=== PATIENT | male | born 1955 | race Caucasian/White ===

== ENCOUNTER 2017-06-27 12:49 | Observation (INO) | payer OTHER ==
[2017-06-27] MEDS ORDERED: BABY ASPIRIN 81 MG CHEW PO ONE (13:10)
[2017-06-27] MEDS ORDERED: Nitrostat 0.4 MG (ED) SL ONE ×2 (13:10→13:14)
[2017-06-27] MEDS ORDERED: BABY ASPIRIN 81 MG CHEW ONE (13:14)
[2017-06-27] MEDS ORDERED: Sodium Chloride 0.9% 1000 ML 1,000 ML IV SCH (13:15)
--- NOTE | 2017-06-27 13:30 | XRAY ---
Indication: Chest pain and dizziness. Comparison: None Portable chest demonstrates minimal right mid lung fibrosis/scarring and a few scattered calcified granulomas. Remaining heart and lungs normal. Bony thorax intact.
[2017-06-27 13:31] LABS: BASOPHIL % 0.3 % (0.0-0.4); Eosinophil % 1.1 % (0.00-5.0); Granulocytes % 69.1 % (36.0-66.0); Lymphocytes % 23.8 % (24.0-44.0); Mean Cell Volume 92.1 fl (78-100); Mean Corpuscular Hemoglobin 30.1 pg (26-32); Mean Platelet Volume 11.5 fl (6-9.5); Monocytes % 5.7 % (0.0-12.0); Platelet Count 134 K/mm3 (150-450); Red Blood Count 4.91 M/mm3 (4.1-5.6); White Blood Count 7.9 K/mm3 (4.0-10.5)
--- NOTE | 2017-06-27 13:39 | ERPHSYRPT ---
- History of Present Illness Time Seen by Provider: 06/27/17 13:00 Historian: patient Patient Subjective Stated Complaint: pt states he developed chest pain omn 06/24. states he has pressure and some dizziness. Triage Nursing Assessment: pt pink, warm, dry. lung sounds clear and equal. Physician History: PATIENT WITH A HISTORY OF HYPERTENSION AND HYPOTHYROIDISM COMPLAINS OF SUBSTERNAL CHEST HEAVINESS INTERMITTENTLY FOR 4-5 DAYS, DENIES ASSOCIATED DIAPHORESIS, PALPITATIONS OR DYSPNEA. PAIN SCALE INITIALLY 5/10 HAS COMPLETELY RESOLVED UPON ARRIVAL TO EMERGENCY ROOM. Timing/Duration: week(s) Activities at Onset: none Quality: pressure, other (HEAVINESS) Location: substernal Chest Pain Radiation: no radiation Severity of Pain-Max: moderate Severity of Pain-Current: none Modifying Factors: Improves With: nothing Associated Symptoms: denies symptoms Nitro Today/Relief: no nitro taken today Aspirin Treatment Today: 81 mg x 4, provided by ED Allergies/Adverse Reactions: Sulfa (Sulfonamide Antibiotics) Allergy (Severe, Verified 08/25/13 12:56) Hives Home Medications: Aspirin 81 gm Chew [Baby Aspirin 81 mg Chew] 81 mg PO DAILY 08/25/13 [ History] Lisinopril 20 mg [Zestril 20 MG] 40 mg PO DAILY 08/25/13 [History] Hydrocodone/APAP 10/325 mg [[place] 10/325 MG Tablet] 1 tab PO Q4HPRN PRN [History] Levothyroxine Sodium 150 Mcg [Synthroid 150 Mcg] 150 mcg PO DAILY 10/12/16 [History] Meloxicam 15 mg [Meloxicam 15 MG] 15 mg PO DAILY 10/12/16 [History] Gabapentin 300 mg PO HS 05/23/17 [History] Aspirin [Aspirin EC] 81 mg PO DAILY 06/27/17 [History] Pravastatin Sodium 40 mg PO DAILY 06/27/17 [History] Hx Tetanus, Diphtheria Vaccination/Date Given: No (unknown) Hx Influenza Vaccination/Date Given: No Hx Pneumococcal Vaccination/Date Given: No Immunizations Up to Date: Yes - Review of Systems Constitutional: No Fever, No Chills Eyes: No Symptoms Ears, Nose, & Throat: No Symptoms Respiratory: No Symptoms, No Cough, No Dyspnea Cardiac: Chest Pain, No Edema, No Syncope Abdominal/Gastrointestinal: No Symptoms, No Abdominal Pain, No Nausea, No Vomiting, No Diarrhea Genitourinary Symptoms: No Symptoms, No Dysuria Musculoskeletal: No Symptoms, No Back Pain, No Neck Pain Skin: No Rash Neurological: No Dizziness, No Focal Weakness, No Sensory Changes Psychological: No Symptoms Endocrine: No Symptoms Hematologic/Lymphatic: No Symptoms All Other Systems: Reviewed and Negative - Past Medical History Pertinent Past Medical History: Yes Neurological History: No Pertinent History ENT History: No Pertinent History Cardiac History: High Cholesterol, Hypertension Respiratory History: Pneumonia Endocrine Medical History: Hypothyroidism Musculoskeletal History: Other GI Medical History: GERD, Hemorrhoids History: No Pertinent History Psycho-Social History: Anxiety, Depression Male Reproductive Disorders: No Pertinent History Other Medical History: back pain, nervous,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,cramping - Past Surgical History Past Surgical History: Yes Neuro Surgical History: No Pertinent History Cardiac: No Pertinent History Respiratory: No Pertinent History Gastrointestinal: No Pertinent History Genitourinary: No Pertinent History Musculoskeletal: Other Male Surgical History: No Pertinent History Other Surgical History: 2 back surgeries,hip realease muscles, bronch drain lung dt pneumonia 2010,tonsils removed - Social History Smoking Status: Former smoker Exposure to second hand smoke: No Drug Use: none Patient Lives Alone: No - Nursing Vital Signs Nursing Vital Signs: Initial Vital Signs Temperature 98.7 F 06/27/17 12:50 Pulse Rate 74 06/27/17 12:50 Respiratory Rate 20 06/27/17 12:50 Blood Pressure 147/78 06/27/17 12:50 O2 Sat by Pulse Oximetry 98 06/27/17 12:50 Pain Scale Pain Intensity 5 - Physical Exam General Appearance: no apparent distress, alert Eye Exam: PERRL/EOMI, eyes nml inspection Ears, Nose, Throat Exam: normal ENT inspection, moist mucous membranes Neck Exam: normal inspection, non-tender, supple, full range of motion Respiratory Exam: normal breath sounds, lungs clear, No respiratory distress Cardiovascular Exam: regular rate/rhythm, normal heart sounds Gastrointestinal/Abdomen Exam: soft, normal bowel sounds (NONTENDER), No tenderness, No mass Back Exam: normal inspection, No CVA tenderness, No vertebral tenderness Extremity Exam: normal inspection, normal range of motion Neurologic Exam: alert, oriented x 3, cooperative, normal mood/affect, sensation nml, No motor deficits Skin Exam: normal color, warm, dry SpO2 Interpretation: normal SpO2: 98 Oxygen Delivery: Room Air - Course EKG Interpreted by Me: RATE, Sinus Rhythm, NORMAL AXIS, LAFB - Radiology Exams Chest X-ray Interpretation: Discussed w/ radiologist (MINIMAL RIGHT MID LUNG FIBROSIS/ SCARRING AND A FEW SCATTERED GRANULOMAS) Ordered Tests: Active Orders 24 hr Category Date Time Status Bedrest with BRP/BSC ROUTINE Activity 06/27/17 15:08 Ordered Admission/Status Order ROUTINE Care 06/27/17 15:08 Ordered Call Admit Doctor for Orders ROUTINE Care 06/27/17 15:07 Ordered Cnc Set Up Operator STAT Care 06/27/17 13:01 Active Code Status Order ROUTINE Care 06/27/17 15:08 Ordered EKG-ER Only STAT Care 06/27/17 13:00 Active IV Care Q6H Care 06/27/17 15:08 Ordered IV Insertion STAT Care 06/27/17 13:00 Active Implement Chest Pain Pathway ROUTINE Care 06/27/17 15:08 Ordered Oxygen-ED Only NASAL CANNULA 2 lpm Care 06/27/17 13:10 Active Martín Hose, Apply ROUTINE Care 06/27/17 15:08 Ordered Telemetry ROUTINE Care 06/27/17 15:08 Ordered Vital Signs Q4H Care 06/27/17 15:07 Ordered Weight,Daily 0600 Care 06/27/17 15:08 Ordered Cardiac Diet Diet 06/27/17 Dinner Ordered CHEST 1 VIEW (PORTABLE) Stat Exams 06/27/17 13:01 Completed CBC W DIFF Stat Lab 06/27/17 13:15 Completed CMP Stat Lab 06/27/17 13:15 Completed D-DIMER QUANTITATION Stat Lab 06/27/17 13:15 Completed LIPID PROFILE AM.LAB Lab 06/28/17 04:00 Ordered NT PRO BNP Stat Lab 06/27/17 13:15 Completed PROTIME WITH INR Stat Lab 06/27/17 13:44 Completed TROPONIN Q3H Lab 06/27/17 13:15 Completed TROPONIN Q3H Lab 06/27/17 16:15 Ordered TROPONIN Q3H Lab 06/27/17 19:15 Ordered TROPONIN Q3H Lab 06/27/17 22:15 Ordered EKG Q8HX2,QAMX3,PRN RT 06/27/17 15:08 Ordered Pulse Oximetry Q4H RT 06/27/17 15:08 Ordered Transfer Order Routine Transfer 06/27/17 Ordered Medication Summary Generic Name Dose Route Start Last Admin Trade Name Freq PRN Reason Stop Dose Admin Acetaminophen 650 mg 06/27/17 15:07 Tylenol 325 Mg PO 07/27/17 15:06 Q4H PRN PRN PAIN AND/OR FEVER Al Hydrox/Mg Hydrox/Simethicone 30 ml 06/27/17 15:07 Maalox Es 30 Ml Unit Dose PO 07/27/17 15:06 Q4H PRN PRN INDIGESTION Aspirin 325 mg 06/28/17 10:00 Ecotrin 325 Mg PO 07/28/17 09:59 DAILY BELA Gabapentin 300 mg 06/27/17 22:00 Neurontin 300 Mg PO 07/27/17 21:59 HS BELA Sodium Chloride 1,000 mls @ 50 mls/hr 06/27/17 13:15 06/27/17 13:15 Sodium Chloride 0.9% 1000 Ml IV 07/27/17 13:14 50 mls/hr .Q20H BELA Administration Sodium Chloride 500 mls @ 20 mls/hr 06/27/17 15:15 Sodium Chloride 0.9% 500 Ml IV 07/27/17 15:14 .Q24H BELA Levothyroxine Sodium 150 mcg 06/28/17 10:00 Synthroid 150 Mcg PO 07/28/17 09:59 QAM BELA Lisinopril 20 mg 06/28/17 10:00 Zestril 20 Mg PO 07/28/17 09:59 DAILY [facility] Magnesium Hydroxide 30 - 60 ml 06/27/17 15:07 Milk Of Magnesia 30 Ml PO 07/27/17 15:06 QDP PRN CONSTIPATION Morphine Sulfate 2 mg 06/27/17 15:07 Morphine Sulfate 2 Mg Inj IV 07/02/17 15:06 .Q15MIN PRN PRN CHEST PAIN Nitroglycerin 0.4 mg 06/27/17 15:07 Nitrostat 0.4 Mg Tablet SL 07/27/17 15:06 .Q5MIN PRN CHEST PAIN Nitroglycerin 1 gm 06/27/17 22:00 Nitro-Bid 2% Ud Packets TOP 07/27/17 21:59 Q8HT BELA Ondansetron HCl 4 mg 06/27/17 15:07 Zofran 4 Mg/2 Ml Vial IV 07/27/17 15:06 Q4H PRN PRN NAUSEA/VOMITING Senna/Docusate Sodium 2 udtab 06/27/17 15:07 Senokot-S Tablet PO 07/27/17 15:06 BID PRN PRN CONSTIPATION Discontinued Medications Generic Name Dose Route Start Last Admin Trade Name Freq PRN Reason Stop Dose Admin Aspirin 324 mg 06/27/17 13:10 06/27/17 13:15 Baby Aspirin 81 Mg Chew PO 06/27/17 13:11 324 mg STAT ONE Administration Aspirin Confirm 06/27/17 13:14 Baby Aspirin 81 Mg Chew Administered 06/27/17 13:15 Dose 324 mg .ROUTE .STK-MED ONE Nitroglycerin 0.4 mg 06/27/17 13:10 06/27/17 13:15 Nitrostat 0.4 Mg (Ed) SL 06/27/17 13:11 0.4 mg STAT ONE Administration Nitroglycerin Confirm 06/27/17 13:14 Nitrostat 0.4 Mg (Ed) Administered 06/27/17 13:15 Dose 0.4 mg SL .STK-MED ONE Nitroglycerin 1 gm 06/27/17 13:43 06/27/17 13:47 Nitro-Bid 2% Ud Packets TOP 06/27/17 13:44 1 gm STAT ONE Administration Nitroglycerin Confirm 06/27/17 13:46 Nitro-Bid 2% Ud Packets Administered 06/27/17 13:47 Dose 1 gm .ROUTE .STK-MED ONE Lab/Rad Data: Laboratory Result Diagrams 06/27/17 13:15 06/27/17 13:15 Laboratory Results 06/27/17 06/27/17 06/27/17 Range/Units 13:44 13:15 13:15 WBC (4.0-10.5) K/mm3 RBC (4.1-5.6) M/mm3 Hgb (12.5-18.0) gm/dl Hct (42-50) % MCV (78-100) fl MCH (26-32) pg MCHC (32-36) g/dl RDW (11.5-14.0) % Plt Count (150-450) K/mm3 MPV (6-9.5) fl Gran % (36.0-66.0) % Lymphocytes % (24.0-44.0) % Monocytes % (0.0-12.0) % Eosinophils % (0.00-5.0) % Basophils % (0.0-0.4) % Basophils # (0-0.4) INR 1.14 (0.8-3.0) D-Dimer 267 (0-500) ng/mL Sodium (136-145) mEq/L Potassium (3.5-5.1) mEq/L Chloride (98-107) mEq/L Carbon Dioxide (21-32) mEq/L Anion Gap (5-15) MEQ/L BUN (9-20) mg/dL Creatinine (0.55-1.30) mg/dl Estimated GFR ML/MIN Glucose (70-110) MG/DL Calcium (8.5-10.1) mg/dL Total Bilirubin (0.2-1.0) mg/dL AST (15-37) U/L ALT (12-78) U/L Alkaline Phosphatase (46-116) U/L Troponin I < 0.017 (0.000-0.056) ng/ml NT-Pro-B Natriuret Pep (0-125) pg/ml Serum Total Protein (6.4-8.2) gm/dL Albumin (3.4-5.0) g/dL 06/27/17 06/27/17 Range/Units 13:15 13:15 WBC 7.9 (4.0-10.5) K/mm3 RBC 4.91 (4.1-5.6) M/mm3 Hgb 14.8 (12.5-18.0) gm/dl Hct 45.2 (42-50) % MCV 92.1 (78-100) fl MCH 30.1 (26-32) pg MCHC 32.7 (32-36) g/dl RDW 13.0 (11.5-14.0) % Plt Count 134 L (150-450) K/mm3 MPV 11.5 H (6-9.5) fl Gran % 69.1 H (36.0-66.0) % Lymphocytes % 23.8 L (24.0-44.0) % Monocytes % 5.7 (0.0-12.0) % Eosinophils % 1.1 (0.00-5.0) % Basophils % 0.3 (0.0-0.4) % Basophils # 0.02 (0-0.4) INR (0.8-3.0) D-Dimer (0-500) ng/mL Sodium 140 (136-145) mEq/L Potassium 3.9 (3.5-5.1) mEq/L Chloride 102 (98-107) mEq/L Carbon Dioxide 27.4 (21-32) mEq/L Anion Gap 14.2 (5-15) MEQ/L BUN 18 (9-20) mg/dL Creatinine 1.06 (0.55-1.30) mg/dl Estimated GFR > 60 ML/MIN Glucose 99 (70-110) MG/DL Calcium 9.7 (8.5-10.1) mg/dL Total Bilirubin 0.80 (0.2-1.0) mg/dL AST 20 (15-37) U/L ALT 31 (12-78) U/L Alkaline Phosphatase 73 (46-116) U/L Troponin I (0.000-0.056) ng/ml NT-Pro-B Natriuret Pep 49 (0-125) pg/ml Serum Total Protein 7.6 (6.4-8.2) gm/dL Albumin 4.7 (3.4-5.0) g/dL - Progress Progress: improved Progress Note: 06/27/17 13:42 PATIENT GIVEN 4 BABY ASPIRIN, NITROPASTE 1" ACW, PATIENT REMAINED CHEST PAIN FREE THROUGHOUT EMERGENCY ROOM VISIT 06/27/17 15:04 Discussed with : Yo (DISCUSSED WITH DR GANDARA AT 1455 FOR OBSERVATION ) - Departure Time of Disposition: 15:16 Departure Disposition: Observation Clinical Impression: ACUTE CHEST PAIN Condition: Stable Critical Care Time: No Referrals: KELSEA GROSS [Primary Care Provider] -
[2017-06-27] MEDS ORDERED: NITRO-BID 2% UD PACKETS TOP ONE (13:43)
[2017-06-27] MEDS ORDERED: NITRO-BID 2% UD PACKETS ONE (13:46)
[2017-06-27 13:54] LABS: ALBUMIN 4.7 g/dL (3.4-5.0); ALKALINE PHOSPHATASE 73 U/L (46-116); ANION GAP 14.2 MEQ/L (5-15); BLOOD UREA NITROGEN 18 mg/dL (9-20); CHLORIDE 102 mEq/L (98-107); Carbon Dioxide 27.4 mEq/L (21-32); Glucose 99 MG/DL (70-110); Potassium 3.9 mEq/L (3.5-5.1); SGOT/AST 20 U/L (15-37); SGPT/ALT 31 U/L (12-78); SODIUM 140 mEq/L (136-145); Total Protein 7.6 gm/dL (6.4-8.2)
[2017-06-27 14:00] LABS: INR 1.14 (0.8-3.0); PROTIME 12.7 SECONDS (8.83-12.87)
[2017-06-27] MEDS ORDERED: MORPHINE SULFATE 2 MG INJ IV PRN (15:07)
[2017-06-27] MEDS ORDERED: TYLENOL 325 MG PO PRN (15:07)
[2017-06-27] MEDS ORDERED: Nitrostat 0.4 MG Tablet SL PRN (15:07)
[2017-06-27] MEDS ORDERED: Senokot-S Tablet PO PRN (15:07)
[2017-06-27] MEDS ORDERED: Zofran 4 MG/2 ML VIAL IV PRN (15:07)
[2017-06-27] MEDS ORDERED: MILK OF MAGNESIA 30 ML PO PRN (15:07)
[2017-06-27] MEDS ORDERED: MAALOX ES 30 ML UNIT DOSE PO PRN (15:07)
[2017-06-27] MEDS ORDERED: Sodium Chloride 0.9% 500 ML 500 ML IV SCH (15:15)
[2017-06-27] MEDS: Norco 10/325 MG Tablet PO PRN ×2 (17:42→23:46)
[2017-06-27] MEDS: NITRO-BID 2% UD PACKETS TOP SCH (21:15)
[2017-06-27] MEDS ORDERED: NEURONTIN 300 MG PO SCH (22:00)
[2017-06-27] MEDS ORDERED: ZOCOR 20MG PO SCH (22:00)
[2017-06-28 04:42] VITALS: O2SAT 95
[2017-06-28] MEDS: NITRO-BID 2% UD PACKETS TOP SCH (05:33)
[2017-06-28] MEDS: Norco 10/325 MG Tablet PO PRN (05:36)
[2017-06-28 07:07] VITALS: BP 115/59; PULSE 48
--- NOTE | 2017-06-28 08:27 | PCM.HP ---
History of Present Illness - Chief Complaint Chief Complaint: CHEST PAIN Date: 06/28/17 History of Present Illness: Mr.GREEN LEÓN is a 61 year old male. who for the last month has been having intermittent dizziness and lightheadedness with standing and yesterday became light headed and having some sharp chest pains. He is no longer having these since arrival and had no shortness of breath or palpitations with this. He currently has no symptoms and is feeling like himself. He did have low heart rate and low bp overnight but not symptomatic. - Review of Systems Constitutional: No Fever, No Chills Eyes: No Symptoms Ears, Nose, & Throat: No Symptoms Respiratory: No Cough, No Short Of Breath Cardiac: No Chest Pain, No Edema, No Syncope Abdominal/Gastrointestinal: No Abdominal Pain, No Nausea, No Vomiting, No Diarrhea Genitourinary Symptoms: No Dysuria Musculoskeletal: No Back Pain, No Neck Pain Skin: No Rash Neurological: No Dizziness, No Focal Weakness, No Sensory Changes Psychological: No Symptoms Endocrine: No Symptoms Hematologic/Lymphatic: No Symptoms Immunological/Allergic: No Symptoms Medications & Allergies Home Medications: Home Medication List Aspirin 81 gm Chew [Baby Aspirin 81 mg Chew] 81 mg PO DAILY 08/25/13 [ History Confirmed 06/27/17] Hydrocodone/APAP 10/325 mg [[place] 10/325 MG Tablet] 1 tab PO Q4HPRN PRN [History Confirmed 06/27/17] Levothyroxine Sodium 150 Mcg [Synthroid 150 Mcg] 150 mcg PO DAILY 10/12/16 [History Confirmed 06/27/17] Meloxicam 15 mg [Meloxicam 15 MG] 15 mg PO DAILY 10/12/16 [History Confirmed ] Gabapentin 300 mg PO TID 05/23/17 [History Confirmed 06/27/17] Pravastatin Sodium 40 mg PO DAILY 06/27/17 [History Confirmed 06/27/17] Allergies/Adverse Reactions: Allergies Allergy/AdvReac Type Severity Reaction Status Date / Time Sulfa (Sulfonamide Allergy Severe Hives Verified 06/27/17 16:29 Antibiotics) - Past Medical History Past Medical History: Yes Neurological History: No Pertinent History ENT History: No Pertinent History Cardiac History: High Cholesterol, Hypertension Respiratory History: Pneumonia Endocrine Medical History: Hypothyroidism Musculoskelatal History: Other GI Medical History: No Pertinent History History: No Pertinent History Pyscho-Social History: Anxiety Male Reproductive Disorders: No Pertinent History Comment: back pain, 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,cramping - Past Surgical History Past Surgical History: Yes Neuro Surgical History: No Pertinent History Cardiac History: No Pertinent History Respiratory Surgery: No Pertinent History GI Surgical History: No Pertinent History Genitourinary Surgical Hx: No Pertinent History Musculskeletal Surgical Hx: Other Male Surgical History: No Pertinent History Other Surgical History: 2 back surgeries,hip release muscles, bronch drain lung dt pneumonia 2009, - Social History Smoking Status: Never smoker Exposure to second hand smoke: No Alcohol: None Drug Use: none - Physical Exam Vital Signs: Vital Signs - 24 hr Temp Pulse Pulse Resp BP Pulse Ox 06/28/17 07:06 98.6 F 48 L 18 115/59 95 06/28/17 04:00 97.4 F 53 L 18 97/63 95 06/28/17 00:17 98.0 F 54 L 18 107/70 94 L 06/27/17 16:26 98.2 F 59 L 18 132/86 95 06/27/17 16:23 98.2 F 59 L 132/86 06/27/17 16:17 98.2 F 59 L 18 132/86 95 06/27/17 16:07 66 14 113/89 98 06/27/17 15:29 71 15 122/69 97 06/27/17 15:16 98 06/27/17 14:13 60 16 110/68 98 06/27/17 13:49 62 16 109/75 98 06/27/17 12:50 98.7 F 62 74 20 147/78 98 General Appearance: no apparent distress, alert Neurologic Exam: alert, oriented x 3, cooperative, normal mood/affect, nml cerebellar function, nml station & gait, sensation nml, No motor deficits Eye Exam: PERRL/EOMI, eyes nml inspection Ears, Nose, Throat Exam: normal ENT inspection, TMs normal, pharynx normal, moist mucous membranes Neck Exam: normal inspection, non-tender, supple, full range of motion Respiratory Exam: normal breath sounds, lungs clear, No respiratory distress Cardiovascular Exam: normal heart sounds, normal peripheral pulses, bradycardia Gastrointestinal/Abdomen Exam: soft, normal bowel sounds, No tenderness, No mass Back Exam: normal inspection, normal range of motion, No CVA tenderness, No vertebral tenderness Extremity Exam: normal inspection, normal range of motion, pelvis stable Skin Exam: normal color, warm, dry, No rash Lymphatic Exam: No adenopathy Results - Labs Lab/Micro Results: Lab Results-Last 24 Hours 06/27/17 06/27/17 06/27/17 Range/Units 16:15 19:17 22:20 Troponin I < 0.017 < 0.017 < 0.017 (0.000-0.056) ng/ml Triglycerides (30-200) mg/dL Cholesterol (100-200) mg/dL LDL Cholesterol (5-99) mg/dL HDL Cholesterol (35-60) mg/dL Heart Disease Risk Ratio 06/28/17 Range/Units 05:17 Troponin I (0.000-0.056) ng/ml Triglycerides 129 (30-200) mg/dL Cholesterol 153 (100-200) mg/dL LDL Cholesterol 99 (5-99) mg/dL HDL Cholesterol 33 L (35-60) mg/dL Heart Disease Risk Ratio 4.6 - Other Procedures and Tests Respiratory Therapy 06/29/17 05:00 EKG ROUTINE 06/30/17 05:00 EKG ROUTINE Assessment/Plan (1) Bradycardia Status: Acute Assessment & Plan: will set up with 24 hour holter monitor tele only showed asymptomatic bradycardia wtihout any significant pauses with the chest pain and risk factors also set up outpatient stress testing. continue aspirin Code(s): R00.1 - BRADYCARDIA, UNSPECIFIED (2) Orthostatic hypotension Status: Acute Assessment & Plan: will stop the lisinopril f/u in 1 week encourage good po hydration Code(s): I95.1 - ORTHOSTATIC HYPOTENSION (3) Chest pain, rule out acute myocardial infarction Status: Ruled-out Code(s): R07.9 - CHEST PAIN, UNSPECIFIED
--- NOTE | 2017-06-28 08:29 | PCM.DCORD ---
- Discharge Discharge Date: 06/28/17 Disposition: Home, Self-Care Condition: Stable Prescriptions: Continue Aspirin 81 gm Chew [Baby Aspirin 81 mg Chew] 81 mg PO DAILY Hydrocodone/APAP 10/325 mg [[place] 10/325 MG Tablet] 1 tab PO Q4HPRN PRN PRN Reason: Pain Levothyroxine Sodium 150 Mcg [Synthroid 150 Mcg] 150 mcg PO DAILY Meloxicam 15 mg [Meloxicam 15 MG] 15 mg PO DAILY Gabapentin 300 mg PO TID Pravastatin Sodium 40 mg PO DAILY Discontinued Lisinopril 20 mg [Zestril 20 MG] 40 mg PO DAILY Follow up with: KELSEA GROSS [Primary Care Provider] - 1 Week Forms: Patient Portal Information
[2017-06-28] MEDS ORDERED: Mobic 7.5 MG PO SCH (10:00)
[2017-06-28] MEDS ORDERED: NEURONTIN 300 MG PO SCH (10:00)
[2017-06-28] MEDS ORDERED: NON-FORMULARY ITEM (Meloxicam 15 Mg [Meloxicam 15 Mg] 15 MG) PO SCH (10:00)
[2017-06-28] MEDS ORDERED: BABY ASPIRIN 81 MG CHEW PO SCH (10:00)
[2017-06-28] MEDS ORDERED: Ecotrin 325 MG PO SCH (10:00)
[2017-06-28] MEDS ORDERED: Zestril 20 MG PO SCH ×2 (10:00)
[2017-06-28] MEDS ORDERED: ECOTRIN 81 MG PO SCH (10:00)
[2017-06-28] MEDS ORDERED: SYNTHROID 150 MCG PO SCH (10:00)
[2017-06-28] MEDS ORDERED: NON-FORMULARY ITEM (Pravastatin Sodium [Pravastatin Sodium] 40 MG) PO SCH (10:00)
== END 2017-06-28 10:20 | disposition home or self-care (01) ==
LOC: ED 12:49 → SUPCPDRO 12:49 → MED SURG 16:14
PROVIDERS: ADMIT Family Medicine; ATTEND Family Medicine
DX: R00.1 Bradycardia, unspecified (principal); R07.9 Chest pain, unspecified; I95.1 Orthostatic hypotension
CPT/HCPCS: 36000; 36415; 71010; 80053; 80061; 83721; 83880; 84484; 85025; 85379; 85610; 93005; 93041; 93225; 96360; 96361; 99285; G0378; A9270-GY

== ENCOUNTER 2018-02-12 08:49 | Emergency (ER) | payer OTHER ==
[2018-02-12] MEDS ORDERED: Rocephin 1000 MG INJ IM ONE (08:57)
--- NOTE | 2018-02-12 09:04 | ERPHSYRPT ---
- History of Present Illness Time Seen by Provider: 02/12/18 08:58 Source: patient Exam Limitations: no limitations Physician History: 62-year-old male came to the emergency room with complaining of skin abscess on left knee which started 2 days ago while he was working on the floor. He had a low-grade fever with chills last night. Patient is not diabetic and has a history of high blood pressure. Patient denies any other symptoms or any other 80 of same type of abscess. Timing/Duration: yesterday Quality: painful Location: extremities Allergies/Adverse Reactions: Sulfa (Sulfonamide Antibiotics) Allergy (Severe, Verified 06/27/17 16:29) Hives Home Medications: Aspirin 81 gm Chew [Baby Aspirin 81 mg Chew] 81 mg PO DAILY 08/25/13 [ History] Hydrocodone/APAP 10/325 mg [[place] 10/325 MG Tablet] 1 tab PO Q4-6HPRN PRN 08/31/13 [History] Levothyroxine Sodium 150 Mcg [Synthroid 150 Mcg] 150 mcg PO DAILY 10/12/16 [History] Meloxicam 15 mg [Meloxicam 15 MG] 15 mg PO DAILY 10/12/16 [History] Gabapentin 300 mg PO TID 05/23/17 [History] Pravastatin Sodium 40 mg PO DAILY 06/27/17 [History] Lisinopril 20 mg [Zestril 20 MG] 20 mg PO DAILY 10/18/17 [History] Tizanidine HCl 4 mg [Zanaflex 4 MG] 4 mg PO QHS 12/19/17 [History] Hx Tetanus, Diphtheria Vaccination/Date Given: No (unknown) Hx Influenza Vaccination/Date Given: No Hx Pneumococcal Vaccination/Date Given: No - Review of Systems Constitutional: Fever, Chills Eyes: No Symptoms Ears, Nose, & Throat: No Symptoms Respiratory: No Cough, No Dyspnea Cardiac: No Chest Pain, No Edema, No Syncope Abdominal/Gastrointestinal: No Abdominal Pain, No Nausea, No Vomiting, No Diarrhea Genitourinary Symptoms: No Dysuria Musculoskeletal: No Back Pain, No Neck Pain Skin: Cellulitis, Induration, No Rash Neurological: No Dizziness, No Focal Weakness, No Sensory Changes Psychological: No Symptoms Endocrine: No Symptoms All Other Systems: Reviewed and Negative - Past Medical History Pertinent Past Medical History: Yes Neurological History: No Pertinent History ENT History: No Pertinent History Cardiac History: High Cholesterol, Hypertension Respiratory History: Pneumonia Endocrine Medical History: Hypothyroidism Musculoskeletal History: Other GI Medical History: No Pertinent History History: No Pertinent History Psycho-Social History: Anxiety Male Reproductive Disorders: No Pertinent History Other Medical History: back pain, 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,cramping - Past Surgical History Past Surgical History: Yes Neuro Surgical History: No Pertinent History Cardiac: No Pertinent History Respiratory: No Pertinent History Gastrointestinal: No Pertinent History Genitourinary: No Pertinent History Musculoskeletal: Other Male Surgical History: No Pertinent History Other Surgical History: 2 back surgeries,hip release muscles, bronch drain lung dt pneumonia 2009, - Social History Smoking Status: Never smoker Exposure to second hand smoke: No Drug Use: none Patient Lives Alone: No - Physical Exam General Appearance: no apparent distress, alert Eye Exam: PERRL/EOMI, eyes nml inspection Ears, Nose, Throat Exam: normal ENT inspection, pharynx normal, moist mucous membranes Neck Exam: normal inspection, non-tender, supple, full range of motion Respiratory Exam: normal breath sounds, lungs clear, No respiratory distress Cardiovascular Exam: regular rate/rhythm, normal heart sounds Gastrointestinal/Abdomen Exam: soft, mass, No tenderness Back Exam: normal inspection, normal range of motion, No CVA tenderness, No vertebral tenderness Extremity Exam: normal inspection, normal range of motion Neurologic Exam: alert, oriented x 3, cooperative, normal mood/affect, sensation nml, No motor deficits Skin Exam: normal color, warm, dry, other (abscess of left knee) - Course Nursing assessment & vital signs reviewed: Yes Ordered Tests: Active Orders 24 hr Category Date Time Status Wound Care STAT Care 02/12/18 08:57 Active Medication Summary Discontinued Medications Generic Name Dose Route Start Last Admin Trade Name Freq PRN Reason Stop Dose Admin Ceftriaxone Sodium 1,000 mg 02/12/18 08:57 Rocephin 1000 Mg Inj IM 02/12/18 08:58 STAT ONE - Progress Progress: unchanged Counseled pt/family regarding: diagnosis, need for follow-up - Departure Time of Disposition: 09:01 Departure Disposition: Home Clinical Impression: Cellulitis of knee, left Condition: Stable Critical Care Time: No Referrals: KELSEA GROSS [Primary Care Provider] - Instructions: Cellulitis (Skin Infection), Adult (DC) Additional Instructions: ZENA LEÓNMARVA was seen on 02/12/18 n the Emergency Room. At that time you were treated for an emergent condition, during your visit Laboratory, Radiology and/or other procedures may have been ordered. It is very important that you follow-up with your Primary Care Physician KELSEA GROSS within the next 24-48 hours to review your Emergency Room visit and the final results of testing that was ordered. Some test results such as Urine Cultures, Blood Cultures, and other cultures if ordered will not be finalized for 24-48 hours. If you do not have a Primary Care Provider please call the medical records department at [phone] to obtain a copy of your results or you may sign into our patient portal to obtain these results by visiting us @ [email or web address] and completing the following steps: 1. Click on the Patient Portal link 2. Click the Patient Self Enrollment Link to complete the enrollment form and entering your 3. Once the enrollment form is completed you will receive an email with a temporary ID and password at the email address you provided. 4. Next choose a user name and password. Your user name must be at least 4 characters long and your password must be at least 4 characters long. 5. Choose a security question from the list and provide your answer to the question. If you already have signed into the Health Portal you may access your Health Care Information 28/03 by the following steps: 1. Login to our website @ [email or web address] 2. Enter your original user name and password. FAQS The [facility] Health Portal is an online tool that contains your Lab Results, Radiology Reports, Visit History, Discharge Instructions and Health Summary Lab and Radiology Results will not be available for 72 hours on the portal. The Portal is a secure site, passwords are encryted and URLs are re-written so they cannot be copied and pasted. You and authorized family members are the only ones who can access your Portal. Also there is a timeout feature that protects your information if you leave the Portal page open. If you have technical difficulty please use the Contact Us link on the page this will allow you to submit any questions you have regarding the Portal or you may contact the Medical Record Department at [phone]. Prescriptions: Cephalexin Mh 500 mg [Keflex 500 mg] 500 mg PO Q6H #40 capsule
[2018-02-12] MEDS ORDERED: Rocephin 1000 MG INJ ONE (09:10)
[2018-02-12] MEDS ORDERED: XYLOCAINE 1% HCL 20 ML MDV ONE (09:10)
[2018-02-12 09:19] VITALS: BP 111/64; PULSE 60; O2SAT 97
== END 2018-02-12 09:24 | disposition home or self-care (01) ==
LOC: ED 08:49
DX: L03.116 Cellulitis of left lower limb (principal); Z79.82 Long term (current) use of aspirin; Z79.899 Other long term (current) drug therapy
CPT/HCPCS: 96372; 99283; J0696

== ENCOUNTER 2018-09-10 14:58 | Emergency (ER) | payer OTHER ==
[2018-09-10] MEDS ORDERED: TETRACAINE 0.5% STERI-UNIT SOL OP ONE (15:01)
[2018-09-10] MEDS ORDERED: Fluor-I-Strip/Ful-Flo OP ONE (15:01)
[2018-09-10] MEDS ORDERED: Eye-Stream Solution ONE (15:01)
[2018-09-10 15:10] VITALS: BP 140/91; PULSE 88; O2SAT 97
--- NOTE | 2018-09-10 15:41 | ERPHSYRPT ---
- History of Present Illness Time Seen by Provider: 09/10/18 15:20 Source: patient Patient Subjective Stated Complaint: cutting siding and a piece went into his eye Triage Nursing Assessment: Pt reports that he was cutting vinyl siding and a piece flew into his right eye, can only make out objects with right eye, denies pain but feels something in there, wears reading glasses, no other issues at this time Physician History: 62 y/o white male presents with right eye injury. 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 immediately had some blurred vision. no pain but feels like there is something in there. Timing/Duration: today Location: right eye Severity: mild Apparent Injury: yes Associated Symptoms: foreign body sensation, blurred vision Visual Assistive Devices: Glasses (reading) Allergies/Adverse Reactions: Sulfa (Sulfonamide Antibiotics) Allergy (Severe, Verified 09/10/18 15:10) Hives Home Medications: Lisinopril 20 mg [Zestril 20 MG] 20 mg PO DAILY 10/18/17 [History] Amlodipine Besylate 10 mg PO DAILY 09/10/18 [History] Gabapentin 1 cap PO TID 09/10/18 [History] Hydrocodone/Acetaminophen [Hydrocodone-Acetamin 10-325 mg] 1 tab PO Q46H PRN 02/21 [History] Levothyroxine Sodium 150 Mcg [Synthroid 150 Mcg] 150 mcg PO DAILY 09/10/18 [History] Hx Tetanus, Diphtheria Vaccination/Date Given: No (unknown) Hx Influenza Vaccination/Date Given: No Hx Pneumococcal Vaccination/Date Given: No - Review of Systems Constitutional: No Symptoms Eyes: Vision Changes, Foreign Body Sensation Ears, Nose, & Throat: No Symptoms Respiratory: No Symptoms Cardiac: No Symptoms Abdominal/Gastrointestinal: No Symptoms Genitourinary Symptoms: No Symptoms Musculoskeletal: No Symptoms Skin: No Symptoms Neurological: No Symptoms Psychological: No Symptoms Endocrine: No Symptoms Hematologic/Lymphatic: No Symptoms Immunological/Allergic: No Symptoms All Other Systems: Reviewed and Negative - Past Medical History Pertinent Past Medical History: Yes Neurological History: No Pertinent History ENT History: No Pertinent History Cardiac History: High Cholesterol, Hypertension Respiratory History: Pneumonia Endocrine Medical History: Hypothyroidism Musculoskeletal History: Other GI Medical History: No Pertinent History History: No Pertinent History Psycho-Social History: Anxiety Male Reproductive Disorders: No Pertinent History Other Medical History: back pain, 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,cramping - Past Surgical History Past Surgical History: Yes Neuro Surgical History: No Pertinent History Cardiac: No Pertinent History Respiratory: No Pertinent History Gastrointestinal: No Pertinent History Genitourinary: No Pertinent History Musculoskeletal: Other Male Surgical History: No Pertinent History Other Surgical History: 2 back surgeries,hip release muscles, bronch drain lung dt pneumonia 2009, - Social History Smoking Status: Former smoker Exposure to second hand smoke: No Drug Use: none Patient Lives Alone: No - Nursing Vital Signs Nursing Vital Signs: Initial Vital Signs Pulse Rate 88 09/10/18 15:03 Blood Pressure 140/91 09/10/18 15:03 O2 Sat by Pulse Oximetry 97 09/10/18 15:03 Pain Scale Pain Intensity 0 - Physical Exam General Appearance: no apparent distress, alert, anxiety Vision Acuity Degree Evaluation Phase: Uncorrected Vision Acuity Left Eye: 20/50 Eye Exam: right eye: corneal abrasion (laceration), vision changes, left eye: normal inspection, bilateral eye: PERRL, EOMI Ears, Nose, Throat Exam: normal ENT inspection Neck Exam: normal inspection Respiratory Exam: normal breath sounds, lungs clear, airway intact, No chest tenderness, No respiratory distress, No accessory muscle use, No rhonchi, No wheezing, No stridor Cardiovascular Exam: regular rate/rhythm, normal heart sounds, normal peripheral pulses Gastrointestinal Exam: soft, No tenderness Extremity Exam: normal inspection, normal range of motion, pelvis stable Neurologic: alert, oriented x 3, cooperative, fourdrinier tender II-XII nml as tested Skin Exam: normal color, warm, dry Lymphatic: adenopathy SpO2 Interpretation: normal SpO2: 97 Oxygen Delivery: Room Air - Course Nursing assessment & vital signs reviewed: Yes Ordered Tests: Medication Summary Discontinued Medications Generic Name Dose Route Start Last Admin Trade Name Freq PRN Reason Stop Dose Admin Eye Irrigation Solution Confirm 09/10/18 15:01 Eye-Stream Solution Administered 09/10/18 15:02 Dose 30 ml .ROUTE .STK-MED ONE Fluorescein Sodium Confirm 09/10/18 15:01 Pmsvn-L-Bzvju/Ful-Rajat Administered 09/10/18 15:02 Dose 1 mg OP .STK-MED ONE Tetracaine HCl Confirm 09/10/18 15:01 Tetracaine 0.5% Steri-Unit Ladan Administered 09/10/18 15:02 Dose 4 ml OP .STK-MED ONE - Progress Progress: unchanged Counseled pt/family regarding: diagnosis, need for follow-up - Departure Time of Disposition: 15:40 Departure Disposition: Home Clinical Impression: Corneal laceration of right eye Condition: Stable Critical Care Time: No Referrals: KELSEA GROSS [Primary Care Provider] - Additional Instructions: apply antibiotic ointment into right eye 4 times daily. call ophthamologist tomorrow to arrange follow up management. Nurse will provide you with a list. Prescriptions: Erythromycin Base 3.5 gm [Erythromycin 3.5 GM OPHTH.] 3.5 gm OP QID #1 tube
[2018-09-10] MEDS ORDERED: TETRACAINE 0.5% STERI-UNIT SOL OP STA (15:51)
== END 2018-09-10 16:03 | disposition home or self-care (01) ==
LOC: ED 14:58
DX: S05.31XA Ocular laceration without prolapse or loss of intraocular tissue, right eye, initial encounter (principal); W45.8XXA Other foreign body or object entering through skin, initial encounter; W22.8XXA Striking against or struck by other objects, initial encounter; Z79.899 Other long term (current) drug therapy
CPT/HCPCS: 99283; A9270-GY

== ENCOUNTER 2022-02-15 05:52 | Day surgery (SDC) | payer MEDICARE ==
[2022-02-15] MEDS ORDERED: Lactated Ringers 1,000 ML IV SCH (06:30)
[2022-02-15] MEDS ORDERED: DIPRIVAN 200 MG/20 ML IV ONE (07:28)
[2022-02-15] MEDS ORDERED: Versed 2 MG/2 ML Injection ONE (07:28)
[2022-02-15 08:46] VITALS: PULSE 55
[2022-02-15 08:54] VITALS: BP 130/84; O2SAT 96
--- NOTE | 2022-02-15 11:19 | OP ---
SURGERY DATE/TIME: 02/15/2022 0739 PREOPERATIVE DIAGNOSIS: Screening exam. POSTOPERATIVE DIAGNOSIS: Small sigmoid colon polyp. PROCEDURE: Colonoscopy with cold forceps biopsy. SURGEON: Dr. Matteo Harrington. ANESTHESIA: MAC. Medications given by anesthesia department. HISTORY: The patient is a 66-year-old white male patient presenting now for screening colonoscopy. He reports he had one ten years ago. The patient was described the risks of the procedure including the risk of perforation, phlebitis, untoward reaction to medication, bleeding and missed lesions. The patient verbalized his understanding and desired to have the procedure performed. DESCRIPTION OF PROCEDURE: The patient was given the medications by the anesthesia department. He had continuous pulse oximetry, ECG monitoring and intermittent blood pressure monitoring during the examination. He was placed in the left lateral decubitus position. A digital rectal examination was performed and revealed normal anal sphincter tone, no masses and normal prostate. The flexible Olympus pediatric colonoscope was used to intubate the rectum. A view of the colon was developed sequentially to the cecum. Upon insertion and withdrawal was noted a small polyp in the sigmoid colon which was destroyed using one pass of cold forceps biopsy. No other mucosal lesions being encountered the scope was removed from the patient who tolerated the procedure well and was sent back to OP recovery in good condition. The prep was noted to be fair to good.
== END 2022-02-15 09:03 | disposition home or self-care (01) ==
LOC: SDC 05:52
PROVIDERS: ATTEND Family Medicine
DX: Z12.11 Encounter for screening for malignant neoplasm of colon (principal); D12.5 Benign neoplasm of sigmoid colon
CPT/HCPCS: J2250; J2704

== ENCOUNTER 2024-09-15 13:32 | Emergency (ER) | payer MEDICARE ==
[2024-09-15 14:04] VITALS: TEMP 97.2
--- NOTE | 2024-09-15 14:27 | ERPHSYRPT ---
- History of Present Illness Time Seen by Provider: 09/15/24 14:15 Source: patient Exam Limitations: no limitations Patient Subjective Stated Complaint: Pt reports for approx 2 weeks bilat lower extremities have been aching and "feels like concrete blocks are sitting on ". States he saw Dr Ravi his pain management doctor who increased his gabapentin for this and may have provided some relief but not much. Pt also reports occasionally "I can feel wet going down my leg" and reports this is more so in the right leg. Aching/heaviness is said to be worse in thighs than in calves. Occasionally will have some tingling in leg but reports its never numb. Also report buttock is sore. Triage Nursing Assessment: Pt alert and oriented x3. Respirations easy/nonlabored. Skin w/p/d. Ambulated to ED cot without difficulty. No discoloration/warmth/cold observed/palpated to bilat lower extremities. Varicose veins noted. Strong pedal pulses bilat. No swelling noted. Physician History: 68yo m presents via private vehicle for 2wks of proximal lower extremity heaviness as well as some tenderness in the upper thighs and lateral hips b/l. Pt denies any recent falls or trauma to the legs. Pt reports hx of low back surgery, also endorses hx of "muscle issue" that he is unaware of the actual diagnostic name for. Pt denies any loss of bowel/bladder continence, denies any fevers at home. Pt denies any radicular pain. Pt reports he was shoveling snow earlier today and believes that exacerbated his sx. Quality: dullness Severity of Pain-Max: mild Severity of Pain-Current: mild Lower Extremities Pain: hip: bilateral, thigh: bilateral Modifying Factors: Improves With: nothing Associated Symptoms: none Allergies/Adverse Reactions: Sulfa (Sulfonamide Antibiotics) Allergy (Severe, Verified 05/20/24 19:54) Hives Home Medications: Gabapentin 2 cap PO TID 09/10/18 [History] Allopurinol 300 mg [Zyloprim 300 mg] 300 mg PO DAILY 02/05/22 [History] Hydrocodone/Acetaminophen [[place] 10-325 mg] 1 tablet PO Q4H PRN PRN 02/05/22 [History] Levothyroxine Sodium [Euthyrox] 137 mcg PO DAILY 02/05/22 [History] Mv-Mn/Iron/Folic Acid/Herb 190 [Vitamin D3 Complete Caplet] 1 each PO DAILY 02/05/22 [History] Omeprazole 20 mg PO DAILY 02/05/22 [History] Polyethylene Glycol 3350 [Laxaclear] 1,700 gm PO HS 02/05/22 [History] Vit B12/Intrinsic Fact/Folate [Intrinsi X72-[id number] Tablet] 1 each PO DAILY 02/05/22 [History] Vit B6/L. Mefolate/Me-B12/Ala [Nufola Capsule] 1 each PO DAILY 02/05/22 [History] Evolocumab [Repatha Sureclick] 140 mg SQ UD 05/20/24 [History] Fish Oil/Borage/Flax/Om3,6,9 1 [Burnet 3-6-9 1,200 mg Softgel] 1 tab PO DAILY 09/15/24 [History] Hx Tetanus, Diphtheria Vaccination/Date Given: No (unknown) Hx Influenza Vaccination/Date Given: No Hx Pneumococcal Vaccination/Date Given: No Travel Risk - International Travel Have you traveled outside of the country in past 3 weeks: No - Emerging Infectious Disease Are you exhibiting symptoms associated with any current EIDs: No Symptoms: Abdominal Pain - Review of Systems Constitutional: No Symptoms Respiratory: No Symptoms Cardiac: No Symptoms Abdominal/Gastrointestinal: No Symptoms Musculoskeletal: Other (heavy legs b/l, sore upper legs) Skin: No Symptoms Neurological: No Symptoms - Past Medical History Pertinent Past Medical History: Yes Neurological History: No Pertinent History ENT History: No Pertinent History Cardiac History: High Cholesterol, Hypertension Respiratory History: Pneumonia Endocrine Medical History: Hypothyroidism Musculoskeletal History: Other GI Medical History: No Pertinent History History: No Pertinent History Psycho-Social History: Anxiety Male Reproductive Disorders: No Pertinent History Other Medical History: back pain, 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,cramping - Past Surgical History Past Surgical History: Yes Neuro Surgical History: No Pertinent History Cardiac: No Pertinent History Respiratory: No Pertinent History Gastrointestinal: No Pertinent History Genitourinary: No Pertinent History Musculoskeletal: Other Male Surgical History: No Pertinent History Other Surgical History: 2 back surgeries,hip release muscles, bronch drain lung dt pneumonia 2009, - Social History Smoking Status: Never smoker Exposure to second hand smoke: No Drug Use: none Patient Lives Alone: No - Social Determinants of Health Will the patient participate in the screening: Declined to provide - Nursing Vital Signs Nursing Vital Signs: Initial Vital Signs Temperature 97.2 F 09/15/24 13:42 Pulse Rate 79 09/15/24 13:42 Respiratory Rate 16 09/15/24 13:42 Blood Pressure 157/85 09/15/24 13:42 O2 Sat by Pulse Oximetry 96 09/15/24 13:42 Pain Scale Pain Intensity 6 - Physical Exam General Appearance: no apparent distress, alert Cardiovascular/Respiratory Exam: chest non-tender, normal breath sounds, regular rate/rhythm, heart sounds normal, no respiratory distress Gastrointestinal/Abdominal Exam: non-tender, soft, No tenderness Back Exam: normal inspection, No CVA tenderness, No vertebral tenderness, No muscle spasm, No point tenderness Hips Exam: bilateral: normal inspection, normal range of motion, soft tissue tenderness (over piriformis b/l) Legs Exam: bilateral leg: non-tender, normal inspection, normal range of motion, no evidence of injury Knees Exam: bilateral knee: non-tender, normal inspection, normal range of motion, no evidence of injury Neuro/Tendon Exam: normal sensation, normal motor functions, normal tendon functions, responds to pain, no evidence tendon injury Mental Status Exam: alert, oriented x 3, cooperative Skin Exam: normal color, warm, dry SpO2 Interpretation: normal SpO2: 96 O2 Delivery: Room Air Ordered Tests: Active Orders 24 hr Category Date Time Status HIP CRISTINA (4V) INCL PELV IF DONE Stat Exams 09/15/24 14:24 Completed LUMBAR COMPLETE (MIN 4 VIEWS) Stat Exams 09/15/24 14:23 Completed CBC W DIFF Stat Lab 09/15/24 14:45 Completed CMP Stat Lab 09/15/24 14:45 Completed ESR [Erythrocyte Sedimentation Rate] Stat Lab 09/15/24 14:45 Completed Lactic Acid Stat Lab 09/15/24 14:45 Completed Lab/Rad Data: Laboratory Result Diagrams 09/15/24 14:45 09/15/24 14:45 Laboratory Results 09/15/24 09/15/24 09/15/24 Range/Units 14:45 14:45 14:45 WBC (4.23-9.07) x10^3/uL RBC (4.63-6.08) x10^6/uL Hgb (13.7-17.5) g/dL Hct (40.1-51.0) % MCV (79.0-92.2) fL MCH (25.7-32.2) pg MCHC (32.3-36.5) g/dL RDW (11.6-14.4) % Plt Count (163-337) x10^3/uL MPV (9.4-12.4) fL Gran % (34.0-67.9) % Immature Gran % (Auto) (0.001-0.429) % Nucleat RBC Rel Count (0.00-0.2) % Eos # (Auto) (0.04-0.54) x10^3/uL Immature Gran # (Auto) (0.001-0.031) x10^3u/L Absolute Lymphs (auto) (1.32-3.57) x10^3/uL Absolute Monos (auto) (0.30-0.82) x10^3/uL Absolute Nucleated RBC (0.00-0.012) x10^3u/L Lymphocytes % (21.8-53.1) % Monocytes % (5.3-12.2) % Eosinophils % (0.8-7.0) % Basophils % (0.2-1.2) % Absolute Granulocytes (1.78-5.38) x10^3/uL Basophils # (0.01-0.08) x10^3/uL ESR 4 (0-15) mm/hr Sodium 138 (135-145) mmol/L Potassium 4.0 (3.5-5.1) mmol/L Chloride 105 (98-107) mmol/L Carbon Dioxide 27 (22-30) mmol/L Anion Gap 10.1 (5-15) MEQ/L BUN 14 (9-20) mg/dL Creatinine 1.00 (0.66-1.25) mg/dL Estimated GFR 82.5 ML/MIN Glucose 105 (74-106) mg/dL Lactic Acid 1.0 (0.4-2.0) Calcium 9.4 (8.4-10.2) mg/dL Total Bilirubin 0.70 (0.2-1.3) mg/dL AST 33 (17-59) U/L ALT 28 (0-50) U/L Alkaline Phosphatase 71 (38-126) U/L Serum Total Protein 7.0 (6.3-8.2) g/dL Albumin 4.3 (3.5-5.0) g/dL 09/15/24 Range/Units 14:45 WBC 8.0 (4.23-9.07) x10^3/uL RBC 4.95 (4.63-6.08) x10^6/uL Hgb 15.4 (13.7-17.5) g/dL Hct 45.8 (40.1-51.0) % MCV 92.5 H (79.0-92.2) fL MCH 31.1 (25.7-32.2) pg MCHC 33.6 (32.3-36.5) g/dL RDW 12.8 (11.6-14.4) % Plt Count 236 (163-337) x10^3/uL MPV 9.6 (9.4-12.4) fL Gran % 68.4 H (34.0-67.9) % Immature Gran % (Auto) 0.4 (0.001-0.429) % Nucleat RBC Rel Count 0.0 (0.00-0.2) % Eos # (Auto) 0.12 (0.04-0.54) x10^3/uL Immature Gran # (Auto) 0.03 (0.001-0.031) x10^3u/L Absolute Lymphs (auto) 1.93 (1.32-3.57) x10^3/uL Absolute Monos (auto) 0.41 (0.30-0.82) x10^3/uL Absolute Nucleated RBC 0.00 (0.00-0.012) x10^3u/L Lymphocytes % 24.1 (21.8-53.1) % Monocytes % 5.1 L (5.3-12.2) % Eosinophils % 1.5 (0.8-7.0) % Basophils % 0.5 (0.2-1.2) % Absolute Granulocytes 5.49 H (1.78-5.38) x10^3/uL Basophils # 0.04 (0.01-0.08) x10^3/uL ESR (0-15) mm/hr Sodium (135-145) mmol/L Potassium (3.5-5.1) mmol/L Chloride (98-107) mmol/L Carbon Dioxide (22-30) mmol/L Anion Gap (5-15) MEQ/L BUN (9-20) mg/dL Creatinine (0.66-1.25) mg/dL Estimated GFR ML/MIN Glucose (74-106) mg/dL Lactic Acid (0.4-2.0) Calcium (8.4-10.2) mg/dL Total Bilirubin (0.2-1.3) mg/dL AST (17-59) U/L ALT (0-50) U/L Alkaline Phosphatase (38-126) U/L Serum Total Protein (6.3-8.2) g/dL Albumin (3.5-5.0) g/dL - Progress Progress: improved Progress Note: 09/15/24 17:48 hip/pelvis xrays showed: No evidence of acute fractures, dislocations, or significant degenerative changes. 09/15/24 17:49 lumbar xr showed: 1. No evidence of acute fractures, or dislocations. 2. Loss of lumbar lordosis possibly due to muscular spasm. stable. 3. Grade I degenerative spondylolisthesis of L4 over L5. stable. 4. Multilevel moderate to severe spondylotic degenerative changes as evidenced by marginal osteophytosis and reduced intervertebral disc spaces at multiple levels. stable. plan for discharge home w/ PCP follow up this week (Juany) discussed likely need for physical therapy and gentle stretching of low back and right piriformis/gluteus musculature recommend tylenol/ibuprofen/home pain medications for discomfort return to ED if: develop loss of bowel or bladder control, develop fevers that do not resolve w/ tylenol, develop weakness in the lower extremities, develop inability to walk, fall Counseled pt/family regarding: lab results, diagnosis, need for follow-up, rad results Medical Desision Making - Diagnostic Testing Diagnostic test were ordered, analyzed, and reviewed by me: Yes Radiological Interpretation: Reviewed by me, Teleradiologist Report - Risk of complications Minimal Risk: Minimal risk of morbidity - Departure Departure Disposition: Home Clinical Impression: Heavy sensation of lower extremity, Bilateral lower extremity pain Condition: Stable Critical Care Time: No Referrals: MIMI TERRY [Primary Care Provider] - Follow up/PCP as directed Additional Instructions: plan for discharge home w/ PCP follow up this week (Juany) discussed likely need for physical therapy and gentle stretching of low back and right piriformis/gluteus musculature recommend tylenol/ibuprofen/home pain medications for discomfort return to ED if: develop loss of bowel or bladder control, develop fevers that do not resolve w/ tylenol, develop weakness in the lower extremities, develop inability to walk, fall
[2024-09-15 14:52] LABS: Absolute Neutrophil Ct (ANC) 5.49 x10^3/uL (1.78-5.38); BASOPHIL % 0.5 % (0.2-1.2); Basophil (Absolute #) 0.04 x10^3/uL (0.01-0.08); Eosinophil % 1.5 % (0.8-7.0); Eosinophil (Absolute #) 0.12 x10^3/uL (0.04-0.54); Hematocrit 45.8 % (40.1-51.0); Hemoglobin 15.4 g/dL (13.7-17.5); IMMATURE GRAN # 0.03 x10^3u/L (0.001-0.031); IMMATURE GRAN % 0.4 % (0.001-0.429); Lymphocyte (Absolute #) 1.93 x10^3/uL (1.32-3.57); Lymphocytes % 24.1 % (21.8-53.1); Mean Cell Volume 92.5 fL (79.0-92.2); Mean Corpuscular Hemoglobin 31.1 pg (25.7-32.2); Mean Corpuscular Hgb Concent. 33.6 g/dL (32.3-36.5); Mean Platelet Volume 9.6 fL (9.4-12.4); Monocyte (Absolute #) 0.41 x10^3/uL (0.30-0.82); Monocytes % 5.1 % (5.3-12.2); Neutrophil % 68.4 % (34.0-67.9); Platelet Count 236 x10^3/uL (163-337); Red Blood Count 4.95 x10^6/uL (4.63-6.08); Red Cell Distribution Width 12.8 % (11.6-14.4)
[2024-09-15 15:08] LABS: ALBUMIN 4.3 g/dL (3.5-5.0); ANION GAP 10.1 MEQ/L (5-15); BILIRUBIN,TOTAL 0.7 mg/dL (0.2-1.3); Calcium 9.4 mg/dL (8.4-10.2); EST GLOMERULAR FILTRATION RATE 82.5 ML/MIN
--- NOTE | 2024-09-15 16:48 | XRAY ---
CLINICAL HISTORY: heaviness in thighs COMPARISON: 04/19/2022 CR. TECHNIQUE: X-ray images of the lumbar spine were obtained in anteroposterior (AP), obliques, lateral and L5-S1 Spot projections. FINDINGS: Alignment: Loss of lumbar lordosis possibly due to muscular spasm. Grade I degenerative spondylolisthesis of L4 over L5. L4-L5 & L5-S1 facetal arthropathy. sacroiliac joints appear normal. Vertebral Bodies: No evidence of fractures, or compression deformities. Moderate anterolateral osteophytosis of the lumbar vertebral end plates. Intervertebral Disc Spaces: Narrowed lumbar disc spaces at multiple levels. Soft Tissues: Paraspinal soft tissues are of normal thickness. No evidence of paraspinal soft tissue swelling or mass effect. Additional Findings: Pelvic phleboli. Calcification of abdominal aorta seen. IMPRESSION: 1. No evidence of acute fractures, or dislocations. 2. Loss of lumbar lordosis possibly due to muscular spasm. stable. 3. Grade I degenerative spondylolisthesis of L4 over L5. stable. 4. Multilevel moderate to severe spondylotic degenerative changes as evidenced by marginal osteophytosis and reduced intervertebral disc spaces at multiple levels. stable. Disclaimer: A subtle bone abnormality or fracture may not be readily apparent on X-rays, thus clinical correlation and further imaging including follow-up CT, MRI, or follow-up X-rays are advised as needed. Electronically Signed by: Waqar Castillo MD. (09/15/2024 16:44:06 EST)
--- NOTE | 2024-09-15 17:00 | XRAY ---
CLINICAL HISTORY: heaviness in thighs COMPARISON: none. TECHNIQUE: X-ray images of both hip joints and pelvis were obtained in anteroposterior (AP) and lateral projections. FINDINGS: Pelvic Bones: Pelvic bones, including the iliac wings, ischium, pubis, and sacrum, are normal and intact. No evidence of fractures, dislocations, or significant osseous lesions. Hip Joints: Hip joints are normal with preserved joint spaces.No evidence of hip dislocation, subluxation, or significant degenerative changes. No osteophytes, joint space narrowing, or sclerosis noted. Acetabular structures appear normal and intact. No signs of acetabular fracture or dysplasia. Femoral heads are normal and centered within the acetabulum. No evidence of fractures, avascular necrosis, or significant deformities. Sacroiliac joints appear normal and unremarkable. No evidence of sacroiliitis or significant degenerative changes. Symphysis Pubis: Symphysis pubis is normal and intact. No evidence of separation or widening. Soft Tissues: Visualized soft tissues are normal and unremarkable. No soft tissue swelling, calcifications, or masses. Additional Findings: Bilateral pelvic phleboli. IMPRESSION: No evidence of acute fractures, dislocations, or significant degenerative changes. DISCLAIMER:A subtle bone abnormality or fracture may not be readily apparent on x-rays, thus clinical correlation and further imaging including follow up CT, MRI, or follow up x-rays are advised as needed Electronically Signed by: Waqar Castillo MD. (09/15/2024 16:55:37 EST)
[2024-09-15 18:02] VITALS: O2SAT 96
[2024-09-15 18:05] VITALS: BP 143/83; PULSE 64; RESP 17
== END 2024-09-15 18:12 | disposition home or self-care (01) ==
LOC: ED 13:32
DX: M79.604 Pain in right leg (principal); M79.605 Pain in left leg; R20.9 Unspecified disturbances of skin sensation; E78.5 Hyperlipidemia, unspecified; I10 Essential (primary) hypertension; Z79.899 Other long term (current) drug therapy
CPT/HCPCS: 36415; 72110; 73522; 80053; 83605; 85025; 85652; 86140; 99283; 99284

== ENCOUNTER 2025-05-22 09:31 | Day surgery (SDC) | payer MEDICARE ==
[2025-05-22] MEDS ORDERED: Sodium Chloride 0.9(Preservative Free) 10 ML IJ ONE (09:32)
[2025-05-22] MEDS ORDERED: propofoL IV ONE (11:23)
[2025-05-22] MEDS ORDERED: Lactated Ringers 1,000 ML IV ONE (12:44)
--- NOTE | 2025-05-22 19:23 | XRAY ---
Indication: Right L4-S1 transforaminal VENICE. Intraoperative fluoroscopy provided for 40 seconds. 4 digital spot image submitted for interpretation demonstrates posterior needle tips projecting over expected right L4 and L5 nerve roots. Small amount of contrast injected for needle tip placement. Correlate with intraoperative findings/report.
--- NOTE | 2025-05-22 19:37 | XRAY ---
40 seconds of fluoroscopy was used in surgery for a right L4-S1 transforaminal VENICE.
== END 2025-05-22 11:56 | disposition home or self-care (01) ==
LOC: SDC-PAIN 09:31
PROVIDERS: ATTEND Psychiatry & Neurology Pain Medicine
DX: M54.16 Radiculopathy, lumbar region (principal)